=== PATIENT | male | born 1970 | race Caucasian/White ===

== ENCOUNTER 2023-10-02 11:03 | Outpatient (CLI) | payer BC, SELFPAY ==
--- NOTE | 2023-10-02 11:15 | CRLHL7_ITS ---
For Patients: As a result of the Century Cures Act, medical imaging exams and procedure reports are released immediately into your electronic medical record. You may view this report before your referring provider. If you have questions, please contact your health care provider. INDICATION : Two right-sided thyroid nodules TECHNIQUE : Ultrasound-guided fine needle aspiration of thyroid nodule. Comparison : 09/15/2023 FINDINGS : PROCEDURE: After the informed consent and time-out, multiple fine needle aspirations were obtained from the thyroid nodule within the right thyroid lobe in the midline and the larger nodule within the right thyroid lobe slightly laterally. Fine needle performed. 25 gauge needles were used for each nodule. Lidocaine was used for local anesthesia. The preliminary cytology was adequate for interpretation. Real-time imaging was used for guidance and needle placement. Post imaging ultrasound demonstrates no immediate complication. IMPRESSION : Successful fine needle aspiration of 2 right-sided thyroid nodules. Dictated by Javad Calle MD @ 10/02/2023 2:11:45 PM (Electronically Signed)
== END 2023-10-02 11:04 | disposition home or self-care (01) ==
PROVIDERS: PCP Surgery; Visit Provider Surgery
DX: E04.2 Nontoxic multinodular goiter (principal); C73 Malignant neoplasm of thyroid gland
CPT/HCPCS: 10005; 10006; 88173

== ENCOUNTER 2024-10-05 14:13 | Outpatient (CLI) | payer BC, SELFPAY ==
--- NOTE | 2024-10-05 14:30 | MR_ITS ---
[address] [address] Phone:?[phone] Fax:?[phone] Referring Physician Information: Aubrey Spaulding M.D. [id number] [address] Phone:?[phone] Fax:?[phone] Patient:Gómez Ruiz D.O.B:?1970 Sex:?Male Phone:?[phone] [facility] MRN:?[id number] Exam Date:?10/05/2024 EXAM: MRI of the RIGHT KNEE, without contrast CLINICAL HISTORY: Ongoing right knee pain. Medial meniscal tear. Recurrent injury. COMPARISONS: Plain radiographs 09/27/2024. TECHNICAL: MR sequences of the right knee: sagittals: PD, PD FS coronals: PD, STIR axials: PD, T2 FS CONTRAST: None SEDATION: None FINDINGS: Bones: No fracture, bone marrow contusion, or other suspicious bone marrow signal abnormality. 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 Retinacula: The medial and lateral retinacula are intact. Fat pads: The infrapatellar, quadriceps, and prefemoral fat pads are unremarkable. Knee joint: Effusion: Physiologic amount of joint fluid. Popliteal cyst: None. Intra-articular bodies: None. Posteromedial corner: The semimembranosus and pes anserine tendons are intact. Medial compartment: Medial meniscus: 2.5 cm in length radial oblique tear from the body through posterior horn of the medial meniscus with a 6 x 3 mm meniscal flap of torn meniscal tissue from the body flipped superomedial to the jointline. Cartilage: Intact. Lateral compartment: Lateral meniscus: Intact. Cartilage: Intact. Ligaments: Anterior cruciate ligament: Intact. Posterior cruciate ligament: Intact. Medial collateral ligament: Mild grade 2 partial tear of the proximal portion of the superficial component of the medial collateral ligament. Posterior oblique ligament: Intact. Fibular collateral ligament: Intact. Posterolateral corner: The distal biceps femoris tendon, iliotibial band, popliteus tendon, popliteus muscle, popliteofibular ligament, and arcuate ligament are intact. Extensor mechanism: Patellar tendon: Intact. Quadriceps tendon: Intact. IMPRESSION: 1. 2.5 cm in length radial oblique tear from the body through posterior horn of the medial meniscus with a 6 x 3 mm flap of torn meniscal tissue from the body flipped superomedial to the jointline. 2. Mild grade 2 partial tear of the proximal portion of the superficial component of the medial collateral ligament. 3. 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 4. No lateral meniscal pathology of the right knee. RCB Electronically signed on 10/05/2024 4:06:00 PM by Navarro Whiteside M.D.
== END 2024-10-05 14:14 | disposition home or self-care (01) ==
LOC: MRI 14:14
PROVIDERS: PCP Surgery; Visit Provider Orthopaedic Surgery Sports Medicine
DX: M25.561 Pain in right knee (principal); S83.241A Other tear of medial meniscus, current injury, right knee, initial encounter; S83.411A Sprain of medial collateral ligament of right knee, initial encounter; M94.261 Chondromalacia, right knee
CPT/HCPCS: 73721

== ENCOUNTER 2024-10-31 08:37 | Day surgery (SDC) | payer BC, SELFPAY ==
[2024-10-31] VITALS (14 sets, daily range): BP systolic 117–134; BP diastolic 70–87; PULSE 47–64; RESP 10–16; TEMP 35.9–36.8; O2SAT 94–100; BMI 32.7
[2024-10-31] MEDS: LACTATED RINGERS 1000 ML 1,000 ML 100 ML IV (09:05)
[2024-10-31] MEDS: SODIUM CHLORIDE 0.9 % (FLUSH) 10 ML SYRINGE IVF (09:05)
--- NOTE | 2024-10-31 09:55 | W.PM.H&PU ---
History & Physical Update History & Physical Update H&P Reviewed and patient assessed: No changes noted
--- NOTE | 2024-10-31 10:40 | P.ANES_ITS ---
Anesthesia Charges Start Date/Time Anesthesia Start Date: 10/31/24 Anesthesia Start Time: 10:27 Stop Date/Time Anesthesia Stop Date: 10/31/24 Anesthesia Stop Time: 11:36 Coding CPT Codes CPT Codes: ANESTH KNEE JOINT SURGERY - 91373 ([id number]) P2 - PATIENT W/MILD SYST DISEASE, QK - STENCIL MACHINE OPERATOR 2-4 CNCRNT ANES PROC, QX - SCHEDULE SUPERVISOR SVC W/ MD MED DIRECTION
--- NOTE | 2024-10-31 10:40 | W.ANESCHARGE ---
Anesthesia Charges Start Date/Time Anesthesia Start Date: 10/31/24 Anesthesia Start Time: 10:27 Stop Date/Time Anesthesia Stop Date: 10/31/24 Anesthesia Stop Time: 11:36 Coding CPT Codes CPT Codes: ANESTH KNEE JOINT SURGERY - 52929 ([id number]) P2 - PATIENT W/MILD SYST DISEASE, QK - CHANNELER INSOLE 2-4 CNCRNT ANES PROC, QX - OBSTETRICS TECHNICIAN SVC W/ MD MED DIRECTION
[2024-10-31] MEDS: ROPIVACAINE 0.5% 30 ML 150 MG INJECTION (11:15)
--- NOTE | 2024-10-31 11:22 | P.ORPRC_ITS ---
Procedure Note Date of procedure: 10/31/24 Procedure: PREOPERATIVE DIAGNOSIS: 1. Right knee medial meniscus tear POSTOPERATIVE DIAGNOSIS: 1. Right knee medial meniscus tear PROCEDURE: 1. Right knee arthroscopic partial medial meniscectomy SURGEON: Aubrey Spaulding M.D. [employer] DEVELOPER: Kristofer Braun PA-C. Of note, an metal moulder's assistant was critical for this case to aid in patient positioning, knee manipulation, instrument exchange, and closure. ANESTHESIA: Spinal EBL: 2ml TOURNIQUET: 30 min at 250 torr COMPLICATIONS: None evident INDICATIONS: The patient is a pleasant 54-year-old male who has experienced right knee pain particularly with any twisting or turning. Physical exam was concerning for medial meniscus tear, this was confirmed on MRI. Additionally, attempted nonoperative management has been tried, and failed. Thus, surgery was recommended. FINDINGS: Complex tearing midbody to posterior horn medial meniscus with a flap displaced superiorly. Posterior root was otherwise intact. Grade 2 chondromalacia medial compartment in general. Grade 4 chondromalacia trochlear groove broadly over region measuring approximately 20 mm in diameter. Patella showed grade 2-3 chondromalacia. Intact lateral meniscus. Healthy articular cartilage lateral compartment. Intact cruciate ligaments. Stable collateral ligaments to exam. DESCRIPTION OF PROCEDURE: After a thorough discussion of risks, benefits, and alternatives, the patient was brought to the operating room and placed upon the operating table. Induction of anesthesia was undertaken as previously noted. 2g iv Ancef was administered within 1 hr of incision preoperatively. Appropriate time-out was performed identifying proper patient, site, and procedure. The right lower extremity was prepped and draped in the appropriate sterile fashion using ChloraPrep. The limb was exsanguinated and tourniquet inflated. Anterolateral and anteromedial portals were established with an 11 blade, and a diagnostic arthroscopy was performed. This identified the findings as noted above. Following the diagnostic arthroscopy, a partial medial menisectomy was performed with the combination of basket forceps and a motorized shaver. Following this, the meniscus was re-probed and found to be stable. Approximately 25% of the overall meniscus required resection. At this stage, the shaver was reinserted into the suprapatellar pouch and all remaining meniscal debris was evacuated. Instruments were removed, excess fluid was drained, and closure performed with 4-0 Monocryl with Steri-Strips. Dressings were applied, the tourniquet deflated, and the patient was awoken from anesthesia and transferred to the PACU in stable condition. PLAN: 1. Weightbear as tolerated operative extremity. Crutch / walker ambulation assistance PRN. 2. Ice, acetominophen and/or ibuprofen, and Oxycodone for pain as needed. 3. Knee range of motion and quad sets/straight leg raise regularly 4. Follow up with PA visit in 1-2 weeks for a wound check and possibly to initiate physical therapy.
--- NOTE | 2024-10-31 11:37 | P.ANES_ITS ---
Anesthesia Charges Start Date/Time Anesthesia Start Date: 10/31/24 Anesthesia Start Time: 10:27 Stop Date/Time Anesthesia Stop Date: 10/31/24 Anesthesia Stop Time: 11:36 Coding CPT Codes CPT Codes: ANESTH KNEE JOINT SURGERY - 03171 ([id number]) P2 - PATIENT W/MILD SYST DISEASE, QK - ENTERTAINMENT MANAGER 2-4 CNCRNT ANES PROC, QX - YARD STOCKER SVC W/ MD MED DIRECTION
--- NOTE | 2024-10-31 11:37 | W.ANESCHARGE ---
Anesthesia Charges Start Date/Time Anesthesia Start Date: 10/31/24 Anesthesia Start Time: 10:27 Stop Date/Time Anesthesia Stop Date: 10/31/24 Anesthesia Stop Time: 11:36 Coding CPT Codes CPT Codes: ANESTH KNEE JOINT SURGERY - 78554 ([id number]) P2 - PATIENT W/MILD SYST DISEASE, QK - MATURITY CHECKER 2-4 CNCRNT ANES PROC, QX - STABLE ATTENDANT SVC W/ MD MED DIRECTION
[2024-10-31] MEDS: IBUPROFEN 200 MG TABLET 600 MG PO (12:57)
== END 2024-10-31 13:28 | disposition home or self-care (01) ==
LOC: OR 08:39
PROVIDERS: PCP Surgery; Visit Provider Orthopaedic Surgery Sports Medicine
PROC: (CPT 29870; principal; 2024-10-31 10:00)
DX: S83.231A Complex tear of medial meniscus, current injury, right knee, initial encounter (principal); E11.9 Type 2 diabetes mellitus without complications; I10 Essential (primary) hypertension; M94.261 Chondromalacia, right knee
CPT/HCPCS: 29881; 01400; 82962; A9270; J0690; J1100; J2250; J2405; J2704; J2795; J3010; J7120